=== PATIENT | male | born 1965 | race Two or more races ===

== ENCOUNTER 2022-11-25 17:11 | Inpatient (IN) | payer SELFPAY ==
[2022-11-25] MEDS ORDERED: SODIUM CHLORIDE 0.9% 500 ML INFUS.BAG IV ONE (18:00)
[2022-11-25] MEDS ORDERED: ACETAMINOPHEN 1000 MG/100 ML BAG IVPB ONE (18:00)
[2022-11-25] MEDS ORDERED: ACETAMINOPHEN INJECTION 100 ML IVPB ONE (18:18)
[2022-11-25 19:11] LABS: BASO % 1.1 % (0-2.0); EOS % 0.9 % (0-4.5); HEMATOCRIT 39.5 % (35.4-49); HEMOGLOBIN 12.8 GM/dL (11.7-16.9); LYMPH % 9.6 % (8-40); MCH 27.2 pg (25.7-33.7); MCHC 32.4 g/dl (32.0-35.9); MEAN CELL VOLUME 83.8 fl (80-96); MONO % 11.4 % (3.8-10.2); PLATELET COUNT 135 10^3/uL (134-434); RBC 4.71 M/mm3 (4.00-5.60); RDW 18.5 % (11.9-15.9); WHITE BLOOD COUNT 8.6 K/mm3 (4.0-10.0)
[2022-11-25 19:25] LABS: POTASSIUM 4.5 mmol/L (3.5-5.1)
[2022-11-25 19:27] LABS: CALCIUM 8.9 mg/dL (8.5-10.1)
[2022-11-25 19:28] LABS: BLOOD UREA NITROGEN 33.4 mg/dL (7-18)
[2022-11-25 19:31] LABS: CREATININE 1.7 mg/dL (0.55-1.3)
[2022-11-25 19:32] LABS: BILIRUBIN,TOTAL 0.8 mg/dL (0.2-1)
[2022-11-25 19:33] LABS: TOT PROT 8.2 g/dl (6.4-8.2)
[2022-11-25] MEDS ORDERED: LACTATED RINGERS SOLUTION 1,000 ML IV SCH (22:30)
[2022-11-26] MEDS ORDERED: REMDESIVIR 200 MG in SODIUM CHLORIDE 250 ML IVPB ONE ×2 (01:50→02:45)
[2022-11-26 03:42] VITALS: BMI 25.4
[2022-11-26 04:18] LABS: URINE APPEARANCE CLEAR; URINE BILIRUBIN NEGATIVE (NEGATIVE); URINE COLOR YELLOW; URINE GLUCOSE (UA) NEGATIVE (NEGATIVE); URINE KETONE NEGATIVE (NEGATIVE); URINE LEUK ESTERASE NEGATIVE (NEGATIVE); URINE NITRITE NEGATIVE (NEGATIVE); URINE PROTEIN NEGATIVE (NEGATIVE)
[2022-11-26 04:23] LABS: OPIATES, URI NEGATIVE (NEGATIVE); URINE BARBITURATES NEGATIVE (NEGATIVE)
[2022-11-26 04:24] LABS: PHENCYCLIDINE,URINE NEGATIVE (NEGATIVE)
[2022-11-26 04:39] LABS: COCAINE, UR NEGATIVE (NEGATIVE); METHADONE, UR NEGATIVE (NEGATIVE); URINE AMPHETAMINES NEGATIVE (NEGATIVE); URINE BENZODIAZEPINES NEGATIVE (NEGATIVE)
[2022-11-26] MEDS: SODIUM CHLORIDE 1,000 ML IV SCH ×2 (05:41→14:53)
[2022-11-26] MEDS: HEPARIN NA (PORCINE) 5,000 UNITS/ML 1ML VIAL SQ SCH ×3 (07:27→22:16)
[2022-11-26 09:52] LABS: BASO % 0.8 % (0-2.0); EOS % 1.7 % (0-4.5); HEMATOCRIT 38.6 % (35.4-49); HEMOGLOBIN 12.5 GM/dL (11.7-16.9); LYMPH % 12.4 % (8-40); MCH 27.2 pg (25.7-33.7); MCHC 32.4 g/dl (32.0-35.9); MEAN PLT VOLUME 9.3 fl (7.5-11.1); NEUT % 72.1 % (42.8-82.8); PLATELET COUNT 125 10^3/uL (134-434); RDW 18.4 % (11.9-15.9); WHITE BLOOD COUNT 7.8 K/mm3 (4.0-10.0)
[2022-11-26 10:01] LABS: POTASSIUM 4.2 mmol/L (3.5-5.1)
[2022-11-26 10:05] LABS: ALBUMIN 3.5 g/dl (3.4-5.0); BLOOD UREA NITROGEN 27.9 mg/dL (7-18); MAGNESIUM 1.7 mg/dL (1.8-2.4)
[2022-11-26 10:07] LABS: CALCIUM 8.5 mg/dL (8.5-10.1)
[2022-11-26 10:08] LABS: CREATININE 1.4 mg/dL (0.55-1.3); PHOSPHOROUS 2.2 mg/dL (2.5-4.9)
[2022-11-26 10:09] LABS: BILIRUBIN,TOTAL 0.7 mg/dL (0.2-1); TOT PROT 7.5 g/dl (6.4-8.2)
[2022-11-27] MEDS: SODIUM CHLORIDE 1,000 ML IV SCH (02:37)
[2022-11-27] MEDS: HEPARIN NA (PORCINE) 5,000 UNITS/ML 1ML VIAL SQ SCH ×3 (06:45→23:25)
[2022-11-27] MEDS: REMDESIVIR 100 MG in SODIUM CHLORIDE 250 ML IVPB SCH (09:48)
[2022-11-27] MEDS: DEXAMETHASONE SOD PHOSPHATE 10 MG/1 ML VIAL IVPUSH SCH (11:58)
[2022-11-27 15:30] LABS: HEMATOCRIT 39.6 % (35.4-49); HEMOGLOBIN 12.9 GM/dL (11.7-16.9); MCH 27.3 pg (25.7-33.7); MCHC 32.7 g/dl (32.0-35.9); MEAN CELL VOLUME 83.5 fl (80-96); MEAN PLT VOLUME 9.4 fl (7.5-11.1); PLATELET COUNT 121 10^3/uL (134-434); RBC 4.74 M/mm3 (4.00-5.60); RDW 18.3 % (11.9-15.9); WHITE BLOOD COUNT 6.6 K/mm3 (4.0-10.0)
[2022-11-27 15:48] LABS: POTASSIUM 4.6 mmol/L (3.5-5.1)
[2022-11-27 15:49] LABS: CALCIUM 9.1 mg/dL (8.5-10.1)
[2022-11-27 15:50] LABS: BLOOD UREA NITROGEN 21.1 mg/dL (7-18); MAGNESIUM 1.7 mg/dL (1.8-2.4)
[2022-11-27 15:53] LABS: CREATININE 1.2 mg/dL (0.55-1.3); PHOSPHOROUS 1.9 mg/dL (2.5-4.9)
[2022-11-27] MEDS ORDERED: MAGNESIUM OXIDE 400 MG TABLET (FP) PO ONE (16:08)
[2022-11-27] MEDS ORDERED: NAPH,MB-DB/K PH,MBDB POWDER PACKET PO ONE (16:08)
[2022-11-27] MEDS: LACTATED RINGERS SOLUTION 1,000 ML/1,000 ML INFUS.BAG IV SCH (17:18)
[2022-11-28] MEDS: HEPARIN NA (PORCINE) 5,000 UNITS/ML 1ML VIAL SQ SCH ×3 (06:48→23:04)
[2022-11-28 09:42] LABS: BASO % 0.2 % (0-2.0); HEMATOCRIT 38.6 % (35.4-49); HEMOGLOBIN 12.8 GM/dL (11.7-16.9); LYMPH % 7.6 % (8-40); MCH 27.3 pg (25.7-33.7); MCHC 33.3 g/dl (32.0-35.9); MEAN PLT VOLUME 8.9 fl (7.5-11.1); NEUT % 85.2 % (42.8-82.8); PLATELET COUNT 126 10^3/uL (134-434); RDW 18.3 % (11.9-15.9); WHITE BLOOD COUNT 11.5 K/mm3 (4.0-10.0)
[2022-11-28 10:01] LABS: POTASSIUM 4.3 mmol/L (3.5-5.1)
[2022-11-28] MEDS: REMDESIVIR 100 MG in SODIUM CHLORIDE 250 ML IVPB SCH (10:12)
[2022-11-28] MEDS: DEXAMETHASONE SOD PHOSPHATE 10 MG/1 ML VIAL IVPUSH SCH (10:19)
[2022-11-28 10:24] LABS: BILIRUBIN,TOTAL 0.4 mg/dL (0.2-1)
[2022-11-28 10:37] LABS: ALBUMIN 3.3 g/dl (3.4-5.0); MAGNESIUM 1.8 mg/dL (1.8-2.4)
[2022-11-28 10:40] LABS: CREATININE 1.2 mg/dL (0.55-1.3)
[2022-11-28 10:41] LABS: TOT PROT 7.5 g/dl (6.4-8.2)
[2022-11-28] MEDS: LACTATED RINGERS SOLUTION 1,000 ML/1,000 ML INFUS.BAG IV SCH (16:29)
[2022-11-29] MEDS: HEPARIN NA (PORCINE) 5,000 UNITS/ML 1ML VIAL SQ SCH ×3 (06:44→22:04)
[2022-11-29 09:40] LABS: BASO % 0.9 % (0-2.0); EOS % 1.7 % (0-4.5); HEMATOCRIT 39.6 % (35.4-49); HEMOGLOBIN 13.2 GM/dL (11.7-16.9); LYMPH % 23.5 % (8-40); MCH 27.5 pg (25.7-33.7); MCHC 33.5 g/dl (32.0-35.9); MEAN CELL VOLUME 82.3 fl (80-96); MEAN PLT VOLUME 9.3 fl (7.5-11.1); MONO % 5.6 % (3.8-10.2); NEUT % 68.3 % (42.8-82.8); PLATELET COUNT 123 10^3/uL (134-434); RBC 4.81 M/mm3 (4.00-5.60); RDW 18.2 % (11.9-15.9); WHITE BLOOD COUNT 8.1 K/mm3 (4.0-10.0)
[2022-11-29 10:04] LABS: ALBUMIN 3.4 g/dl (3.4-5.0); BLOOD UREA NITROGEN 34.5 mg/dL (7-18); CALCIUM 8.7 mg/dL (8.5-10.1)
[2022-11-29 10:05] LABS: MAGNESIUM 1.8 mg/dL (1.8-2.4)
[2022-11-29 10:07] LABS: CREATININE 1.5 mg/dL (0.55-1.3)
[2022-11-29 10:08] LABS: BILIRUBIN,TOTAL 0.2 mg/dL (0.2-1); TOT PROT 7.6 g/dl (6.4-8.2)
[2022-11-29] MEDS: DEXAMETHASONE SOD PHOSPHATE 10 MG/1 ML VIAL IVPUSH SCH (10:56)
[2022-11-29] MEDS: REMDESIVIR 100 MG in SODIUM CHLORIDE 250 ML IVPB SCH (10:56)
[2022-11-29] MEDS: LACTATED RINGERS SOLUTION 1,000 ML/1,000 ML INFUS.BAG IV SCH ×2 (11:14→15:00)
[2022-11-30] MEDS: HEPARIN NA (PORCINE) 5,000 UNITS/ML 1ML VIAL SQ SCH ×2 (06:52→13:27)
[2022-11-30] MEDS: DEXAMETHASONE SOD PHOSPHATE 10 MG/1 ML VIAL IVPUSH SCH (09:55)
[2022-11-30 11:03] LABS: BASO % 0.1 % (0-2.0); HEMATOCRIT 37.7 % (35.4-49); HEMOGLOBIN 12.6 GM/dL (11.7-16.9); LYMPH % 7.1 % (8-40); MCH 27.4 pg (25.7-33.7); MCHC 33.5 g/dl (32.0-35.9); MEAN CELL VOLUME 81.9 fl (80-96); MEAN PLT VOLUME 9.5 fl (7.5-11.1); MONO % 3.8 % (3.8-10.2); PLATELET COUNT 147 10^3/uL (134-434); RBC 4.61 M/mm3 (4.00-5.60); WHITE BLOOD COUNT 14.7 K/mm3 (4.0-10.0)
[2022-11-30] MEDS: REMDESIVIR 100 MG in SODIUM CHLORIDE 250 ML IVPB SCH (11:17)
[2022-11-30 11:27] LABS: POTASSIUM 4.3 mmol/L (3.5-5.1)
[2022-11-30 11:40] LABS: CALCIUM 8.6 mg/dL (8.5-10.1)
[2022-11-30 11:41] LABS: ALBUMIN 3.3 g/dl (3.4-5.0); BLOOD UREA NITROGEN 31.4 mg/dL (7-18); MAGNESIUM 1.6 mg/dL (1.8-2.4)
[2022-11-30 11:44] LABS: CREATININE 1.3 mg/dL (0.55-1.3)
[2022-11-30 11:45] LABS: BILIRUBIN,TOTAL 0.4 mg/dL (0.2-1); TOT PROT 7.3 g/dl (6.4-8.2)
[2022-11-30 15:48] VITALS: BP 118/76; PULSE 81; RESP 16; TEMP 98.3
== END 2022-11-30 16:00 | disposition home or self-care (01) | DRG 137 ==
LOC: JER 17:11 → JERBED 20:22 → J8W 11-26 02:02 → OBSVTOIN 11-27 14:11
PROVIDERS: ADMIT Internal Medicine; ATTEND Nurse Practitioner Acute Care
PROC: XW033E5 Introduction of Remdesivir Anti-infective into Peripheral Vein, Percutaneous Approach, New Technology Group 5 (ICD-10-PCS; principal; 2022-11-26)
DX: U07.1 COVID-19 (principal); N17.9 Acute kidney failure, unspecified; G93.41 Metabolic encephalopathy; I25.2 Old myocardial infarction; Z59.00 Homelessness unspecified; I10 Essential (primary) hypertension; F19.10 Other psychoactive substance abuse, uncomplicated; E86.0 Dehydration
CPT/HCPCS: 0241U-QW; 36415; 70450-TC; 71045-TC-FY; 80048; 80053; 80061; 80307; 81003; 82436; 82570; 83036; 83735; 84100; 84133; 84300; 85025; 85027; 85379; 86140; 87040; 93005; 93010; 97116-GP; 97161-GP; 99285-25; C9399; G0378; J1100; J1644